=== PATIENT | male | born 1985 | race Caucasian/White ===

== ENCOUNTER 2019-06-10 18:41 | Emergency (ER) | payer BC ==
[~2019-06-10] VITALS: Ht 172.7 cm; Wt 74.4 kg
[2019-06-10 18:51] VITALS: Ht 172.7 cm; Wt 74.4 kg
[2019-06-10 20:09] LABS: BASOPHIL % 0.5 % (0-2); PLATELET COUNT 297 x10^3mcL (130-400); RED CELL DISTRIBUTION WIDTH 12.7 % (11.5-14.5)
[2019-06-10 20:24] LABS: CARBON DIOXIDE 27.9 mmol/L (21-32); CHLORIDE SERUM 102 mmol/L (98-107); CREATININE SERUM 1.2 mg/dL (0.7-1.3); GFR1 > 60 mL/min; GLUCOSE SERUM 94 mg/dL (74-106); POTASSIUM SERUM 3.7 mmol/L (3.5-5.1); SODIUM SERUM 139 mmol/L (136-145)
[2019-06-10 20:29] LABS: ALBUMIN 4.2 g/dL (3.4-5.0); ALKALINE PHOSPHATASE 77 U/L (46-116); ALT/SGPT 31 U/L (16-63); AST/SGOT 4 U/L (15-37); BILIRUBIN TOTAL 0.3 mg/dL (0.20-1.00); TOTAL PROTEIN, SERUM 8.1 g/dL (6.4-8.2)
[2019-06-10 23:38] VITALS: BP 111/54
== END 2019-06-10 23:38 | disposition home or self-care (01) ==
LOC: ED 18:41
DX: R19.7 Diarrhea, unspecified (principal); B35.4 Tinea corporis
CPT/HCPCS: J7030; Q9967